=== PATIENT | male | born 1990 | race African-American/Black ===

== ENCOUNTER 2016-06-30 13:49 | Emergency (ER) | payer BC, MEDICAID ==
[~2016-06-30] VITALS: Ht 198.1 cm; Wt 89.5 kg
[2016-06-30 13:51] VITALS: BP 122/60; PULSE 71; RESP 16; TEMP 98; O2SAT 97
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
[2016-06-30] MEDS ORDERED: METHOCARBAMOL 500 MG TAB PO ONE (14:30)
[2016-06-30] MEDS ORDERED: IBUPROFEN 800 MG TAB PO ONE (14:30)
[2016-06-30] MEDS ORDERED: ROBA500T PO (14:39)
[2016-06-30] MEDS ORDERED: IBUP800T23 PO (14:39)
--- NOTE | 2016-06-30 15:25 | RADRPT ---
EXAM DATE/TIME: 06/30/2016 14:59 [facility] COMPARISON: No previous studies available for comparison. INDICATIONS : Patient fell on Tuesday. Feels pain around the entire knee joint. MEDICAL HISTORY : None. SURGICAL HISTORY : Hydrocele surgery. ENCOUNTER: Initial ACUITY: 3 days PAIN SCORE: 8/10 LOCATION: Left Knee. FINDINGS: Four view examination of the left knee demonstrates no evidence of fracture or dislocation. Bony min eralization is normal. The articular surfaces are intact. The suprapatellar soft tissues have a nor mal configuration. CONCLUSION: Negative for fracture or dislocation. Follow up MRI in 7-10 days is suggested if symp toms persist. Noah Morse MD FACR on June 30, 2016 at 15:22 Board Certified Radiologist. This report was verified electronically.
== END 2016-06-30 16:07 | disposition home or self-care (01) ==
LOC: NEPB 13:49
DX: S83.92XA Sprain of unspecified site of left knee, initial encounter (principal); R25.2 Cramp and spasm; F17.200 Nicotine dependence, unspecified, uncomplicated; Z87.39 Personal history of other diseases of the musculoskeletal system and connective tissue; W17.89XA Other fall from one level to another, initial encounter
CPT/HCPCS: 73564; 99283; E0113

== ENCOUNTER 2016-07-27 17:38 | Emergency (ER) | payer MEDICAID ==
[~2016-07-27] VITALS: Ht 198.1 cm; Wt 80.0 kg
[~2016-07-27 17:38] MED LIST: IBUP800T23 PO; ROBA500T PO
[2016-07-27 17:40] VITALS: BP 144/82; PULSE 69; RESP 17; TEMP 97.9; O2SAT 98
[2016-07-27] MEDS ORDERED: SODIUM CHLORIDE 0.9% FLUSH 10 ML FLUSH IVF PRN (19:00)
[2016-07-27] MEDS ORDERED: MORPHINE SULFATE 4 MG/ML INJ IV PUSH ONE ×2 (19:00→20:30)
[2016-07-27] MEDS ORDERED: ONDANSETRON HCL 4 MG/2 ML VIAL IV PUSH ONE (19:00)
[2016-07-27 19:07] VITALS: O2SAT 99
[2016-07-27 19:08] VITALS: BP 133/60; PULSE 60; RESP 16; O2SAT 99
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
--- NOTE | 2016-07-27 19:31 | RADRPT ---
EXAM DATE/TIME: 07/27/2016 19:02 [facility] COMPARISON: CHEST SINGLE AP, October 08, 2014, 15:17. INDICATIONS : Chest pain and fever that started today. Shortness of breath also. MEDICAL HISTORY : None. SURGICAL HISTORY : None. ENCOUNTER: Initial ACUITY: 1 day PAIN SCORE: 10/10 LOCATION: Bilateral chest FINDINGS: A single view of the chest demonstrates the lungs to be symmetrically aerated without evidence of mas s, infiltrate or effusion. The cardiomediastinal contours are unremarkable. Osseous structures are intact. CONCLUSION: No acute disease. Ben Ratliff MD on July 27, 2016 at 19:29 Board Certified Radiologist. This report was verified electronically.
[2016-07-27 19:43] LABS: AUTOMATED NEUTROPHIL # 10.6 TH/MM3 (1.8-7.7); BASOPHIL % 0.2 % (0.0-2.0); HEMATOCRIT 42.7 % (39.0-51.0); HEMO FLAGS DIFF FINAL; LYMPH % 7.4 % (9.0-44.0); LYMPHOCYTE # 0.9 TH/MM3 (1.0-4.8); MEAN CELL VOLUME 93.9 FL (80.0-100.0); MEAN CORPUSCULAR HEMOGLOBIN 32.4 PG (27.0-34.0); MEAN CORPUSCULAR HGB CONC 34.5 % (32.0-36.0); MONO % 7.4 % (0.0-8.0); PLATELET COUNT 145 TH/MM3 (150-450); RED BLOOD COUNT 4.54 MIL/MM3 (4.50-5.90); RED CELL DISTRIBUTION WIDTH 13.4 % (11.6-17.2); WHITE BLOOD COUNT 12.5 TH/MM3 (4.0-11.0)
[2016-07-27 19:54] LABS: ANION GAP 10 MEQ/L (5-15); BICARBONATE 24.3 MEQ/L (21.0-32.0); BLOOD UREA NITROGEN 9 MG/DL (7-18); CHLORIDE 104 MEQ/L (98-107); GLOMERULAR FILTRATION RATE 112 ML/MIN (>89); MAGNESIUM 1.4 MG/DL (1.5-2.5); POTASSIUM 3.7 MEQ/L (3.5-5.1); SODIUM (NA) 138 MEQ/L (136-145)
[2016-07-27 19:59] LABS: CREATINE KINASE 170 U/L (39-308)
[2016-07-27 20:04] LABS: INTERNATIONAL NORMALIZED RATIO 1.2 RATIO; PROTHROMBIN TIME - PATIENT 13.1 SEC (9.8-11.6)
[2016-07-27 20:11] LABS: CKMB 0.8 NG/ML (0.5-3.6)
[2016-07-27] MEDS ORDERED: AZIT250T3 PO (20:28)
[2016-07-27] MEDS ORDERED: HYDR-3533 PO (20:28)
[2016-07-27] MEDS ORDERED: NAPR500T PO (20:28)
[2016-07-27] MEDS ORDERED: KETOROLAC TROMETHAMINE 30 MG/ML (IVP) VIAL IV PUSH ONE (20:30)
[2016-07-27 20:56] VITALS: BP 144/80
--- NOTE | 2016-07-27 22:25 | EKG ---
Date Performed: 07/27/2016 Time Performed: 18:11:30 PTAGE: 25 years EKG: Sinus rhythm RSR' V2 PREVIOUS TRACING : 07/27/2016 18.10 Compared to prior tracing no significant change DOCTOR: Diana Banerjee Interpretating Date/Time 07/27/2016 22:22:00
== END 2016-07-27 21:18 | disposition home or self-care (01) ==
LOC: NEPE 17:38
DX: R07.89 Other chest pain (principal); J40 Bronchitis, not specified as acute or chronic; F17.210 Nicotine dependence, cigarettes, uncomplicated
CPT/HCPCS: 71010; 80048; 82550; 82552; 83735; 84484; 85025; 85610; 85730; 93005; 96374; 96375; 96376; 99285; J1885; J2270; J2405

== ENCOUNTER 2016-11-29 10:45 | Emergency (ER) | payer MEDICAID ==
[~2016-11-29] VITALS: Ht 198.1 cm; Wt 85.0 kg
[~2016-11-29 10:45] MED LIST changes: +AZIT250T3 PO; +HYDR-3533 PO; -IBUP800T23 PO; +NAPR500T PO; -ROBA500T PO
[2016-11-29 10:46] VITALS: BP 146/86; PULSE 59; RESP 14; TEMP 98.3; O2SAT 98
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
[2016-11-29] MEDS ORDERED: PROCHLORPERAZINE MALEATE 10 MG TAB PO ONE (11:15)
[2016-11-29] MEDS ORDERED: diphenhydrAMINE HCL 25 MG CAP PO ONE (11:15)
[2016-11-29] MEDS ORDERED: IBUPROFEN 600 MG TAB PO ONE (11:15)
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
[2016-11-29] MEDS ORDERED: BUTA1CAP PO (15:17)
[2016-11-29 15:28] VITALS: BP 132/78
== END 2016-11-29 15:33 | disposition home or self-care (01) ==
LOC: NEPD 10:45
DX: G44.309 Post-traumatic headache, unspecified, not intractable (principal); F17.210 Nicotine dependence, cigarettes, uncomplicated; F12.90 Cannabis use, unspecified, uncomplicated; Y09 Assault by unspecified means
CPT/HCPCS: 70450; 71020; 99285; Q0164

== ENCOUNTER 2017-02-19 13:51 | Emergency (ER) | payer SELFPAY ==
[~2017-02-19] VITALS: Ht 198.1 cm; Wt 85.0 kg
[~2017-02-19 13:51] MED LIST changes: -AZIT250T3 PO; +BUTA1CAP PO; -HYDR-3533 PO; -NAPR500T PO
[2017-02-19 13:53] VITALS: BP 126/67; PULSE 60; RESP 16; TEMP 98.4; O2SAT 98
--- NOTE | 2017-02-19 15:10 | PD ---
HPI Chief Complaint: Back/ Neck Pain or Injury Time Seen by Provider: 14:52 Travel History International Travel<30 days: No Contact w/Intl Traveler<30days: No Traveled to known affect area: No History of Present Illness HPI 26-year-old male presents to the emergency room for evaluation of low back pain for the past week. Patient states he was playing basketball and got pushed out of the air, landing on his back. States he broke his fall with his hand. 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 Patient took Tylenol PM for pain last night. States it is constant, sharp, throbbing. Localized to the right lower back. Worse with certain range of motion. No radiation. No saddle anesthesia, loss of bowel or bladder control, or lower extremity paresthesias. No IV drug use. History Social History Alcohol Use: Yes (2-3 BEERS/DAY ) Tobacco Use: Yes (1/2 PPD) Allergies-Medications (Allergen,Severity, Reaction): Coded Allergies: No Known Allergies (Unverified , 02/19/17) Reported Meds & Prescriptions Reported Meds & Active Scripts Active Review of Systems Except as stated in HPI: all other systems reviewed are Neg Physical Exam Narrative GENERAL: Well-nourished, well-developed male in no acute distress. Afebrile. Ambulatory. SKIN: Focused skin assessment warm/dry. HEAD: Normocephalic. EYES: No scleral icterus. No injection or drainage. NECK: Supple, trachea midline. No JVD or lymphadenopathy. CARDIOVASCULAR: Regular rate and rhythm without murmurs, gallops, or rubs. RESPIRATORY: Breath sounds equal bilaterally. No accessory muscle use. BACK: No midline tenderness. No obvious deformity. No CVA tenderness. Very mild tenderness to palpation of the SI joint on the right side. Data Data Last Documented VS Vital Signs Date Time Temp Pulse Resp B/P (MAP) Pulse Ox O2 Delivery O2 Flow Rate FiO2 02/19/17 13:53 98.4 60 16 126/67 (86) 98 MDM Medical Screen Exam Complete: Yes Emergency Medical Condition: No Differential Diagnosis Muscle strain Narrative Course 26-year-old male presents to the emergency room for evaluation of low back pain for the past week. Patient states pain started after injuring it during basketball and while lifting heavy things at work. No focal neurological deficits. No midline tenderness. Patient is ambulatory. No red flag symptoms. No indication for emergent imaging at this time. This is muscle strain. No urgent or emergent medical conditions. A medical screening exam was performed: At the time of evaluation the presenting medical condition was determined not to be of an emergent nature. The patient was given the option of receiving additional care, such as muscle relaxers, but declined. Patient was given options for additional community resources from which to obtain care. The Patient Has Been advised to seek medical attention for their presenting complaint. The patient has been advised to return to the ER at any time if an emergent condition develops. Primary Impression: Encounter for medical screening examination Disposition: 01 DISCHARGE HOME Condition: Stable Senia Rasheed Feb 19, 2017 15:10
== END 2017-02-19 15:08 | disposition left against medical advice (07) ==
LOC: NEPK 13:51
DX: M54.5 Low back pain (principal)
CPT/HCPCS: 99281

== ENCOUNTER 2017-09-07 17:20 | Emergency (ER) | payer MEDICAID ==
[~2017-09-07] VITALS: Ht 198.1 cm; Wt 82.5 kg
[2017-09-07 17:30] VITALS: BP 120/58; PULSE 72; RESP 18; TEMP 98.4; O2SAT 99
[2017-09-07] MEDS ORDERED: SODIUM CHLOR 0.9% 1000 ML INJ 1,000 ML IV SCH (18:01)
[2017-09-07] MEDS ORDERED: KETOROLAC TROMETHAMINE 30 MG/ML (IVP) VIAL IVP ONE (18:15)
[2017-09-07] MEDS ORDERED: ONDANSETRON ODT 4 MG TAB PO ONE (18:15)
[2017-09-07] MEDS ORDERED: SODIUM CHLORIDE 0.9% FLUSH 10 ML FLUSH IV FLUSH PRN (18:15)
[2017-09-07 18:41] VITALS: O2SAT 98
--- NOTE | 2017-09-07 18:56 | RADRPT ---
EXAM DATE/TIME: 09/07/2017 18:25 [facility] COMPARISON: CHEST SINGLE AP, July 27, 2016, 19:02. INDICATIONS : Shortness of breath, chest pain, vomiting and body aches. MEDICAL HISTORY : Pinched nerve in back. SURGICAL HISTORY : Right testicle hydrocele surgery. ENCOUNTER: Initial ACUITY: 2 days PAIN SCORE: 4/10 LOCATION: Bilateral chest FINDINGS: A single view of the chest demonstrates the lungs to be symmetrically aerated without evidence of mas s, infiltrate or effusion. The cardiomediastinal contours are unremarkable. Osseous structures are intact. CONCLUSION: No acute disease. Yuri Morel MD on September 07, 2017 at 18:53 Board Certified Radiologist. This report was verified electronically.
--- NOTE | 2017-09-07 19:05 | PD ---
HPI Chief Complaint: Abdominal Pain Time Seen by Provider: 17:50 Travel History International Travel<30 days: No Contact w/Intl Traveler<30days: No Traveled to known affect area: No History of Present Illness HPI 26-year-old male presents to the emergency department with complaint of back pain, abdominal pain, vomiting, fevers 2 days. Vomiting started this morning at approximately 3 AM. He has had some Sprite to drink without continued vomiting. Reports continued nausea. Reports fever of 102.0 last night. Reports midsternal chest pain and shortness of breath. Reports abdominal pain above his bellybutton. Reports hot and cold flashes. Reports nasal congestion times a few weeks. Denies cough. Denies sore throat or ear pain. Reports body aches. Reports dysuria 1 week. Reports normal bowel movements. Denies penile discharge. Denies others have been sick with similar symptoms. Has tried taking ibuprofen for symptom management; last taken last night. No known aggravating or relieving factors. Rates pain 9/10. No known allergies. No primary care provider. Denies significant past medical history. Has no other medical complaints. No other modifying factors or associated signs and symptoms. PFSH Past Medical History Diminished Hearing: No Musculoskeletal: Yes (PINCHED NERVE BACK) Immunizations Current: Yes ?: Not Past Surgical History Genitourinary Surgery: Yes (RIGHT TESTICLE HYDROCELE SURGERY) Social History Alcohol Use: Yes (2-3 BEERS/DAY ) Tobacco Use: Yes (1/2 PPD) Substance Use: Yes (marijuana ) Allergies-Medications (Allergen,Severity, Reaction): Coded Allergies: No Known Allergies (Unverified Adverse Reaction, Unknown, 09/07/17) Reported Meds & Prescriptions Reported Meds & Active Scripts Active Zofran Odt (Ondansetron Odt) 4 Mg Tab 4 Mg SL Q12HR PRN Tylenol (Acetaminophen) 325 Mg Tab 650 Mg PO Q6H PRN Review of Systems Except as stated in HPI: all other systems reviewed are Neg Physical Exam Narrative GENERAL: Well-nourished, well-developed black male patient, in no acute distress ; afebrile, nontoxic-appearing SKIN: Warm and dry. No rash. HEAD: Atraumatic. Normocephalic. EYES: Pupils equal and round. No scleral icterus. No injection or drainage. ENT: Mucosa pink and moist. No erythema or exudates. No uvular edema. No uvular , palatal, or tonsillar deviation. Airway patent. EARS: Bilateral pinnae and external canals appear within normal limits. Bilateral tympanic membranes without erythema, dullness or perforation. NECK: Trachea midline. No lymphadenopathy. CHEST: reproducible tenderness on palpation to the chest wall; without deformity or crepitance. No retractions or use of accessory muscles. CARDIOVASCULAR: Regular rate and rhythm. No murmur appreciated. RESPIRATORY: No accessory muscle use. Clear to auscultation. Breath sounds equal bilaterally. No retractions or tachypnea. GASTROINTESTINAL: Abdomen soft, tenderness to all quadrants; unable to determine area of pain on exam, nondistended. Hepatic and splenic margins not palpable. Bowel sounds are active 4 quadrants. MUSCULOSKELETAL: No obvious deformities. No clubbing. No cyanosis. No edema. NEUROLOGICAL: Awake and alert. Oriented 3. No obvious cranial nerve deficits. Motor grossly within normal limits. Normal speech. Moves all extremities. 5/5 strength to all extremities. PSYCHIATRIC: Appropriate mood and affect; insight and judgment normal. Data Data Last Documented VS Vital Signs Date Time Temp Pulse Resp B/P (MAP) Pulse Ox O2 Delivery O2 Flow Rate FiO2 09/07/17 19:57 62 16 99 Room Air 09/07/17 17:30 98.4 120/58 (78) Orders Orders Complete Blood Count With Diff (09/07/17 18:) Comprehensive Metabolic Panel (09/07/17 18:) Lipase (09/07/17 18:) Urinalysis - C+S If Indicated (09/07/17 18:) Iv Access Insert/Monitor (09/07/17 18:) Ecg Monitoring (09/07/17 18:) Oximetry (09/07/17 18:) Sodium Chlor 0.9% 1000 Ml Inj (Ns 1000 M (09/07/17 18:) Sodium Chloride 0.9% Flush (Ns Flush) (09/07/17 18:15) Electrocardiogram (09/07/17 18:) Ketorolac Inj (Toradol Inj) (09/07/17 18:15) Chest, Single Ap (09/07/17 18:) Influenzae A/B Antigen (09/07/17 18:) Ondansetron Odt (Zofran Odt) (09/07/17 18:15) Sodium Chlor 0.9% 1000 Ml Inj (Ns 1000 M (09/07/17 19:30) Prochlorperazine Inj (Compazine Inj) (09/07/17 19:30) Diphenhydramine Inj (Benadryl Inj) (09/07/17 19:30) Ibuprofen (Motrin) (09/07/17 19:30) Ed Discharge Order (09/07/17 20:17) Labs Laboratory Tests Test 09/07/17 18:43 White Blood Count 4.7 TH/MM3 Red Blood Count 4.97 MIL/MM3 Hemoglobin 15.9 GM/DL Hematocrit 47.4 % Mean Corpuscular Volume 95.5 FL Mean Corpuscular Hemoglobin 32.1 PG Mean Corpuscular Hemoglobin Concent 33.6 % Red Cell Distribution Width 13.1 % Platelet Count 147 TH/MM3 Mean Platelet Volume 9.8 FL Neutrophils (%) (Auto) 88.0 % Lymphocytes (%) (Auto) 5.6 % Monocytes (%) (Auto) 6.2 % Eosinophils (%) (Auto) 0.0 % Basophils (%) (Auto) 0.2 % Neutrophils # (Auto) 4.2 TH/MM3 Lymphocytes # (Auto) 0.3 TH/MM3 Monocytes # (Auto) 0.3 TH/MM3 Eosinophils # (Auto) 0.0 TH/MM3 Basophils # (Auto) 0.0 TH/MM3 CBC Comment DIFF FINAL Differential Comment Urine Color YELLOW Urine Turbidity CLEAR Urine pH 8.0 Urine Specific [place] 1.033 Urine Protein TRACE mg/dL Urine Glucose (UA) NEG mg/dL Urine Ketones 40 mg/dL Urine Occult Blood NEG Urine Nitrite NEG Urine Bilirubin NEG Urine Urobilinogen 4.0 MG/DL Urine Leukocyte Esterase NEG Urine WBC LESS THAN 1 /hpf Urine Squamous Epithelial Cells <1 /hpf Urine Mucus FEW /lpf Microscopic Urinalysis Comment CULT NOT INDICATED Blood Urea Nitrogen 13 MG/DL Creatinine 0.97 MG/DL Random Glucose 96 MG/DL Total Protein 7.5 GM/DL Albumin 4.3 GM/DL Calcium Level 9.3 MG/DL Alkaline Phosphatase 55 U/L Aspartate Amino Transf (AST/SGOT) 16 U/L Alanine Aminotransferase (ALT/SGPT) 25 U/L Total Bilirubin 1.6 MG/DL Sodium Level 141 MEQ/L Potassium Level 3.6 MEQ/L Chloride Level 104 MEQ/L Carbon Dioxide Level 22.9 MEQ/L Anion Gap 14 MEQ/L Estimat Glomerular Filtration Rate 115 ML/MIN Lipase 47 U/L MDM Medical Decision Making Medical Screen Exam Complete: Yes Emergency Medical Condition: Yes Medical Record Reviewed: Yes Differential Diagnosis Influenza, pneumonia, viral illness, gastroenteritis, pancreatitis, cholecystitis Narrative Course 26-year-old male with body aches, generalized abdominal pain, and vomiting. Reports fevers at home. CBC, CMP, lipase, urinalysis, influenza, chest x-ray, EKG, IV, IV fluids, Toradol, Zofran ordered. Chest x-ray concluded: Chest X-Ray 09/07/17 180 Signed Impressions: Service Date/Time: Thursday, September 07, 2017 18:25 - CONCLUSION: No acute disease. Yuri Morel MD 1899: Report given to Dr. Domingo at change of shift. See her note for final patient disposition. Scripts Ondansetron Odt (Zofran Odt) 4 Mg Tab 4 MG SL Q12HR Y for Nausea/Vomiting, #6 TAB 0 Refills Prov: Caitlin Domingo DO 09/07/17 Acetaminophen (Tylenol) 325 Mg Tab 650 MG PO Q6H Y for PAIN SCALE 1 TO 4, #20 TAB 0 Refills Prov: Caitlin Domingo DO 09/07/17 Colleen Varner September 07, 2017 19:05
[2017-09-07 19:13] LABS: AUTOMATED NEUTROPHIL # 4.2 TH/MM3 (1.8-7.7); BASOPHIL % 0.2 % (0.0-2.0); HEMATOCRIT 47.4 % (39.0-51.0); HEMOGLOBIN 15.9 GM/DL (13.0-17.0); LYMPH % 5.6 % (9.0-44.0); LYMPHOCYTE # 0.3 TH/MM3 (1.0-4.8); MEAN CELL VOLUME 95.5 FL (80.0-100.0); MEAN CORPUSCULAR HEMOGLOBIN 32.1 PG (27.0-34.0); MEAN CORPUSCULAR HGB CONC 33.6 % (32.0-36.0); MEAN PLATELET VOLUME 9.8 FL (7.0-11.0); MONO % 6.2 % (0.0-8.0); MONOCYTE # 0.3 TH/MM3 (0-0.9); PLATELET COUNT 147 TH/MM3 (150-450); RED BLOOD COUNT 4.97 MIL/MM3 (4.50-5.90); RED CELL DISTRIBUTION WIDTH 13.1 % (11.6-17.2); WHITE BLOOD COUNT 4.7 TH/MM3 (4.0-11.0)
[2017-09-07 19:22] LABS: BLOOD, URINE NEG (NEG); GLUCOSE,URINE NEG (NEG); KETONE, URINE 40 mg/dL (NEG); MUCUS URINE FEW /lpf (OCC); NITRITE,URINE NEG (NEG); SQUAMOUS EPITHELIAL CELL URINE <1 /hpf (0-5); URINE COLOR YELLOW (YELLW/STRAW); URINE LEUKOCYTE ESTERASE NEG (NEG)
[2017-09-07 19:29] LABS: BILIRUBIN, URINE NEG (NEG)
[2017-09-07 19:30] LABS: ALBUMIN 4.3 GM/DL (3.4-5.0); AST (GOT) 16 U/L (15-37); BICARBONATE 22.9 MEQ/L (21.0-32.0); BLOOD UREA NITROGEN 13 MG/DL (7-18); CALCIUM 9.3 MG/DL (8.5-10.1); CHLORIDE 104 MEQ/L (98-107); CREATININE 0.97 MG/DL (0.60-1.30); GLOMERULAR FILTRATION RATE 115 ML/MIN (>89); GLUCOSE,RANDOM 96 MG/DL (74-106); SODIUM (NA) 141 MEQ/L (136-145)
[2017-09-07] MEDS ORDERED: PROCHLORPERAZINE INJ 10 MG/2 ML VIAL IV PUSH ONE (19:30)
[2017-09-07] MEDS ORDERED: diphenhydrAMINE HCL 50 MG/ML VIAL IV PUSH ONE (19:30)
[2017-09-07] MEDS ORDERED: IBUPROFEN 800 MG TAB PO ONE (19:30)
[2017-09-07] MEDS ORDERED: SODIUM CHLOR 0.9% 1000 ML INJ 1,000 ML IV ONE (19:30)
[2017-09-07 19:31] LABS: ALT (GPT) 25 U/L (12-78)
[2017-09-07 19:33] LABS: ALKALINE PHOSPHATASE 55 U/L (45-117); TOTAL BILIRUBIN ADULT 1.6 MG/DL (0.2-1.0); TOTAL PROTEIN 7.5 GM/DL (6.4-8.2)
[2017-09-07 19:57] VITALS: PULSE 62; RESP 16; O2SAT 99
--- NOTE | 2017-09-07 19:58 | PD ---
Physical Exam Narrative I, Dr. Domingo, have reviewed the advance practice practitioner's documentation and am in agreement, met with the patient face to face, made the diagnosis, and the medical decision making was done by me. *My assessment and Findings: Viral syndrome vs. gastritis vs. pancreatitis 26yo M here with multiple complaints. Pt is mainly concern because he had vomiting and epigastric abdominal pain. Pt was given zofran, toradol, diphenhydramine and compazine. Pt reevaluated at bedside and said he feels much better. No longer has any complaints and wants to go home. Denies any chest pain, sob, n/v, abdominal pain. Abdomen is soft, NT/ND. Labs reviewed, no leukocytosis. H/H normal. Mild thrombocytopenia at 147,000 which is at baseline. Lipase low. CMP unremarkable except mildly elevated total bilirubin at 1.6. UA showed no leukocyte. Culture not indicated. Influenza negative. CXR negative. Return precautions given. Data Data Last Documented VS Vital Signs Date Time Temp Pulse Resp B/P (MAP) Pulse Ox O2 Delivery O2 Flow Rate FiO2 09/07/17 19:57 62 16 99 Room Air 09/07/17 17:30 98.4 120/58 (78) Orders Orders Complete Blood Count With Diff (09/07/17 18:01) Comprehensive Metabolic Panel (09/07/17 18:) Lipase (09/07/17 18:01) Urinalysis - C+S If Indicated (09/07/17 18:01) Iv Access Insert/Monitor (09/07/17 18:) Ecg Monitoring (09/07/17 18:01) Oximetry (09/07/17 18:01) Sodium Chlor 0.9% 1000 Ml Inj (Ns 1000 M (09/07/17 18:01) Sodium Chloride 0.9% Flush (Ns Flush) (09/07/17 18:15) Electrocardiogram (09/07/17 18:01) Ketorolac Inj (Toradol Inj) (09/07/17 18:15) Chest, Single Ap (09/07/17 18:01) Influenzae A/B Antigen (09/07/17 18:01) Ondansetron Odt (Zofran Odt) (09/07/17 18:15) Sodium Chlor 0.9% 1000 Ml Inj (Ns 1000 M (09/07/17 19:30) Prochlorperazine Inj (Compazine Inj) (09/07/17 19:30) Diphenhydramine Inj (Benadryl Inj) (09/07/17 19:30) Ibuprofen (Motrin) (09/07/17 19:30) Labs Laboratory Tests Test 09/07/17 18:43 White Blood Count 4.7 TH/MM3 Red Blood Count 4.97 MIL/MM3 Hemoglobin 15.9 GM/DL Hematocrit 47.4 % Mean Corpuscular Volume 95.5 FL Mean Corpuscular Hemoglobin 32.1 PG Mean Corpuscular Hemoglobin Concent 33.6 % Red Cell Distribution Width 13.1 % Platelet Count 147 TH/MM3 Mean Platelet Volume 9.8 FL Neutrophils (%) (Auto) 88.0 % Lymphocytes (%) (Auto) 5.6 % Monocytes (%) (Auto) 6.2 % Eosinophils (%) (Auto) 0.0 % Basophils (%) (Auto) 0.2 % Neutrophils # (Auto) 4.2 TH/MM3 Lymphocytes # (Auto) 0.3 TH/MM3 Monocytes # (Auto) 0.3 TH/MM3 Eosinophils # (Auto) 0.0 TH/MM3 Basophils # (Auto) 0.0 TH/MM3 CBC Comment DIFF FINAL Differential Comment Urine Color YELLOW Urine Turbidity CLEAR Urine pH 8.0 Urine Specific [place] 1.033 Urine Protein TRACE mg/dL Urine Glucose (UA) NEG mg/dL Urine Ketones 40 mg/dL Urine Occult Blood NEG Urine Nitrite NEG Urine Bilirubin NEG Urine Urobilinogen 4.0 MG/DL Urine Leukocyte Esterase NEG Urine WBC LESS THAN 1 /hpf Urine Squamous Epithelial Cells <1 /hpf Urine Mucus FEW /lpf Microscopic Urinalysis Comment CULT NOT INDICATED Blood Urea Nitrogen 13 MG/DL Creatinine 0.97 MG/DL Random Glucose 96 MG/DL Total Protein 7.5 GM/DL Albumin 4.3 GM/DL Calcium Level 9.3 MG/DL Alkaline Phosphatase 55 U/L Aspartate Amino Transf (AST/SGOT) 16 U/L Alanine Aminotransferase (ALT/SGPT) 25 U/L Total Bilirubin 1.6 MG/DL Sodium Level 141 MEQ/L Potassium Level 3.6 MEQ/L Chloride Level 104 MEQ/L Carbon Dioxide Level 22.9 MEQ/L Anion Gap 14 MEQ/L Estimat Glomerular Filtration Rate 115 ML/MIN Lipase 47 U/L [facility] Supervised Visit with [place]: Yes Interpretation(s) EKG: NSR 63bpm. Normal axis. 1mm ST elevation V3. No reciprocal changes. Diagnosis Primary Impression: Vomiting Qualified Codes: R11.2 - Nausea with vomiting, unspecified Patient Instructions: General Instructions Departure Forms: Tests/Procedures Additional Instruction: Please follow up with your primary care physician in 2-3 days. Return to the ED if symptoms worsen. Med/Other Pt SpecificInfo: Prescription(s) given Scripts Ondansetron Odt (Zofran Odt) 4 Mg Tab 4 MG SL Q12HR Y for Nausea/Vomiting, #6 TAB 0 Refills Prov: Caitlin Domingo DO 09/07/17 Acetaminophen (Tylenol) 325 Mg Tab 650 MG PO Q6H Y for PAIN SCALE 1 TO 4, #20 TAB 0 Refills Prov: Caitlin Domingo DO 09/07/17 Disposition: 01 DISCHARGE HOME Condition: Stable Caitlin Domingo DO September 07, 2017 19:58
[2017-09-07] MEDS ORDERED: ZOFR4TAB3 SL (20:17)
[2017-09-07] MEDS ORDERED: TYLE325T PO (20:17)
--- NOTE | 2017-09-08 19:41 | EKG ---
Date Performed: 09/07/2017 Time Performed: 18:37:03 PTAGE: 26 years EKG: Sinus rhythm POSSIBLE RIGHT VENTRICULAR CONDUCTION DELAY ST ELEVATION CONSISTENT WITH INJURY, PERICARDITIS, OR EA RLY REPOLARIZATION ABNORMAL ECG Since the PREVIOUS TRACING , no significant change noted PREVIOUS TRACIN07/27/2016 18.11 DOCTOR: Byron Julien Interpretating Date/Time 09/08/2017 19:39:18
== END 2017-09-07 20:33 | disposition home or self-care (01) ==
LOC: NEPD 17:20
DX: R11.2 Nausea with vomiting, unspecified (principal); R50.9 Fever, unspecified; R07.9 Chest pain, unspecified; R06.02 Shortness of breath; F12.90 Cannabis use, unspecified, uncomplicated; F17.200 Nicotine dependence, unspecified, uncomplicated
CPT/HCPCS: 71045; 80053; 81001; 83690; 85025; 87804; 93005; 96361; 96374; 96375; 99285; J0780; J1200; J1885; J7030